=== PATIENT | male | born 1985 | race Caucasian/White ===

== ENCOUNTER 2016-08-12 20:08 | Emergency (ER) | payer OTHER ==
[~2016-08-12] VITALS: Ht 188 cm; Wt 108.5 kg
[~2016-08-12 20:08] MED LIST: AC325T PO; ACID1TAB4 PO; ATN50T PO; BACL10TA PO; BUSP15TA55 PO; CIPR500T4 PO; CPR500T PO; FLUO40CA PO; FLX20C PO; GBPN600T PO; IBP200T PO; METR500T17 PO; MIRT45TA5 PO; NAPR125O4 PO; OMEP20CA12 PO; ONDAN4ODT PO; ONDN4T PO; OXYC10TA7 PO; OXYC1TAB12 PO; OXYC1TAB87 PO; TRM50T PO; VANCORAL PO
[2016-08-12] MEDS ORDERED: ASPIRIN 81 MG CHEW (CHILDREN'S ASA) PO ONE (20:30)
[2016-08-12] MEDS: NITROGLYCERIN SUBLINGUAL 0.4 MG (NITROQUICK) TABLET SL PRN ×2 (20:39→20:52)
--- NOTE | 2016-08-12 20:43 | Diagnostic Imaging Report ---
INDICATION: Chest pain. Comparison with 01/14/2016. Lungs are well-aerated and clear. The heart is not enlarged. The pulmonary vasculature is normal. No pneumothorax or pleural effusions. IMPRESSION: Normal portable chest. Dictated by: Dictated on workstation # [id number]
[2016-08-12] MEDS ORDERED: OMEP20TA33 PO (20:44)
[2016-08-12] MEDS ORDERED: ONDANSETRON 2 MG/ML (Z0FRAN) 2 ML VIAL IV ONE (20:50)
[2016-08-12 20:58] LABS: BASOPHILS % (AUTO) 0 % (0-2); EOSINOPHILS # (AUTO) 0.3 10^3uL; EOSINOPHILS % (AUTO) 2 % (0-4); LYMPHOCYTES # (AUTO) 3.6 X10^3; MEAN CORPUSCULAR HEMOGLOBIN 30.8 PG (26.0-34.0); MEAN CORPUSCULAR VOLUME 85 FL (80-100); MEAN PLATELET VOLUME 10.3 FL (6.0-9.5); MONOCYTES % (AUTO) 8 % (3-11); NEUTROPHILS # (AUTO) 7.4 X10^3; NEUTROPHILS % (AUTO) 60 % (51-67); PLATELET COUNT 320 10^3uL (150-450); WHITE BLOOD COUNT 12.28 10^3uL (4.0-11.0)
[2016-08-12 20:59] LABS: MEAN CORPUSCULAR HGB CONC 36.3 g/dL (31.0-37.0)
[2016-08-12 21:09] LABS: ALBUMIN 4.4 g/dL (3.4-5.0); ALKALINE PHOSPHATASE 105 U/L (38-126); ANION GAP 14.5 MEQ/L (3-15); BUN/CREATININE RATIO 7 (10-20); CALCULATED IONIZED CALCIUM 4.1 mg/dL (3.8-4.6); CREATINE KINASE 63 U/L (55-170); TOTAL PROTEIN 7.7 g/dL (6.4-8.5)
[2016-08-12] MEDS ORDERED: SODIUM CHLORIDE FLUSH 3 ML SYR IV PRN (21:10)
[2016-08-12] MEDS ORDERED: SODIUM CHLORIDE FLUSH 10 ML SYR IV PRN (21:10)
[2016-08-12] MEDS ORDERED: KETOROLAC 30 MG/ML (TORADOL) 1 ML VIAL IV ONE (21:20)
[2016-08-12] MEDS ORDERED: PROMETHAZINE HCL INJ 12.5 MG in SODIUM CHLORIDE 25 ML IV ONE (21:20)
[2016-08-12] MEDS ORDERED: LORazepam 2 MG/ML (ATIVAN) 1 ML VIAL IV ONE (21:50)
[2016-08-12] MEDS ORDERED: ED- HYDROcodone/ACETAMINOPHEN 5MG/325MG (NORCO) 6 TABLETS/BTL PO ONE (22:15)
[2016-08-12 23:04] VITALS: BP 101/70
[2016-10-09] MEDS ORDERED: PRED50TA PO (20:21)
== END 2016-08-12 22:35 | disposition home or self-care (01) ==
LOC: ED 20:10
DX: M94.0 Chondrocostal junction syndrome [Tietze] (principal); F41.1 Generalized anxiety disorder; F17.210 Nicotine dependence, cigarettes, uncomplicated
CPT/HCPCS: 36415; 71010; 80053; 82550; 82553; 83880; 84443; 84484; 85025; 85379; 85610; 86140; 93005; 96365; 96375; 99284; J1885; J2060; J2405; J2550; 93010; 99285

== ENCOUNTER 2016-10-09 19:49 | Emergency (ER) | payer OTHER ==
[~2016-10-09] VITALS: Ht 188 cm; Wt 111.3 kg
[2016-10-09 20:10] VITALS: BP 115/91
[2016-10-09] MEDS ORDERED: SODIUM CHLORIDE FLUSH 3 ML SYR IV PRN (20:40)
[2016-10-09] MEDS ORDERED: SODIUM CHLORIDE FLUSH 10 ML SYR IV PRN (20:40)
[2016-10-09] MEDS ORDERED: HYDROmorphone 1 MG/ML (DILAUDID) SYRINGE IV ONE ×2 (20:40→21:40)
[2016-10-09] MEDS ORDERED: ONDANSETRON 2 MG/ML (Z0FRAN) 2 ML VIAL IV ONE (20:40)
[2016-10-09 21:07] LABS: BASOPHILS % (AUTO) 0 % (0-2); EOSINOPHILS % (AUTO) 0 % (0-4); LYMPHOCYTES # (AUTO) 2.8 X10^3; MEAN CORPUSCULAR HEMOGLOBIN 30.3 PG (26.0-34.0); MEAN CORPUSCULAR VOLUME 85 FL (80-100); MEAN PLATELET VOLUME 10.2 FL (6.0-9.5); MONOCYTES # (AUTO) 0.8 X10^3; MONOCYTES % (AUTO) 6 % (3-11); NEUTROPHILS # (AUTO) 9.7 X10^3; NEUTROPHILS % (AUTO) 73 % (51-67); PLATELET COUNT 375 10^3uL (150-450); WHITE BLOOD COUNT 13.33 10^3uL (4.0-11.0)
[2016-10-09 21:09] LABS: MEAN CORPUSCULAR HGB CONC 35.6 g/dL (31.0-37.0)
[2016-10-09 21:10] LABS: BILIRUBIN,URINE Negative (Negative); CLARITY,URINE Clear; COLOR,URINE Yellow; GLUCOSE, URINE (UA) Negative (Negative); LEUKOCYTE ESTERASE ,URINE Negative (Negative); UROBILINOGEN,URINE 0.2 mg/dL (0.2-1.0)
[2016-10-09 21:16] LABS: ANION GAP 16.9 MEQ/L (3-15); CALCULATED IONIZED CALCIUM 3.9 mg/dL (3.8-4.6); TOTAL PROTEIN 8.7 g/dL (6.4-8.5)
--- NOTE | 2016-10-09 21:21 | NUR ---
pt requests more pain medication. Addendum: 10/09/16 at 2121 by [id number] notified
[2016-10-09] MEDS ORDERED: HYDROmorphone 2 MG/ML (DILAUDID) 1 ML SYRINGE IV ONE (22:30)
[2016-10-09] MEDS ORDERED: LORazepam 2 MG/ML (ATIVAN) 1 ML VIAL IV ONE (22:30)
[2016-10-09] MEDS ORDERED: ED- LORAZEPAM 0.5 MG (ATIVAN) 6 TABLETS/BTL PO ONE (23:00)
[2016-10-09] MEDS ORDERED: [UNRECOGNIZED DRUG - OTHER] PO ONE (23:20)
== END 2016-10-09 23:05 | disposition home or self-care (01) ==
LOC: ED 19:52
DX: R10.31 Right lower quadrant pain (principal); R10.11 Right upper quadrant pain
CPT/HCPCS: 36415; 74022; 76705; 80053; 81003; 83690; 85025; 86140; 96361; 96374; 96375; 96376; 99283; J1170; J2060; J2405; J7030

== ENCOUNTER 2016-10-27 16:30 | Emergency (ER) | payer OTHER ==
[~2016-10-27] VITALS: Ht 185.4 cm; Wt 110.4 kg
[~2016-10-27 16:30] MED LIST changes: +OMEP20TA33 PO; +PRED50TA PO
[2016-10-27] MEDS ORDERED: ESZO2TAB38 PO (16:57)
[2016-10-27] MEDS ORDERED: METOCLOPRAMIDE 10 MG/2 ML (REGLAN) VIAL IV ONE ×2 (17:00→17:45)
[2016-10-27] MEDS ORDERED: LORazepam 2 MG/ML (ATIVAN) 1 ML VIAL IV ONE (17:00)
[2016-10-27] MEDS ORDERED: SODIUM CHLORIDE FLUSH 10 ML SYR IV PRN (17:00)
[2016-10-27] MEDS ORDERED: SODIUM CHLORIDE FLUSH 3 ML SYR IV PRN (17:00)
--- NOTE | 2016-10-27 18:12 | NUR ---
pt in room snoring when 2nd dose of reglan given, girlfriend with pt
[2016-10-27] MEDS ORDERED: HYDROmorphone 2 MG/ML (DILAUDID) 1 ML SYRINGE IV ONE (18:40)
[2016-10-27 19:03] VITALS: BP 140/84
== END 2016-10-27 19:04 | disposition home or self-care (01) ==
LOC: ED 16:31
DX: G43.809 Other migraine, not intractable, without status migrainosus (principal)
CPT/HCPCS: 96361; 96374; 96375; 96376; 99283; J1170; J2060; J2765; J7030; 99282

== ENCOUNTER 2016-12-04 17:38 | Emergency (ER) | payer OTHER ==
[~2016-12-04] VITALS: Ht 185.4 cm; Wt 103.0 kg
[~2016-12-04 17:38] MED LIST changes: +ESZO2TAB38 PO
[2016-12-04] MEDS ORDERED: SODIUM CHLORIDE FLUSH 3 ML SYR IV ONE (18:15)
[2016-12-04] MEDS ORDERED: KETOROLAC 30 MG/ML (TORADOL) 1 ML VIAL IV ONE (18:15)
[2016-12-04] MEDS ORDERED: LORazepam 2 MG/ML (ATIVAN) 1 ML VIAL IV ONE ×2 (18:15→20:00)
[2016-12-04] MEDS ORDERED: SODIUM CHLORIDE FLUSH 10 ML SYR IV PRN (18:15)
[2016-12-04] MEDS ORDERED: ONDANSETRON 2 MG/ML (Z0FRAN) 2 ML VIAL IV ONE (18:15)
[2016-12-04] MEDS ORDERED: HYDROmorphone 1 MG/ML (DILAUDID) SYRINGE IV ONE (18:15)
[2016-12-04 18:36] LABS: BILIRUBIN,URINE Negative (Negative); GLUCOSE, URINE (UA) Negative (Negative); LEUKOCYTE ESTERASE ,URINE Negative (Negative); UROBILINOGEN,URINE 0.2 mg/dL (0.2-1.0)
[2016-12-04 18:41] LABS: CLARITY,URINE Slightly Cloudy; COLOR,URINE Dark Yellow
[2016-12-04 18:45] LABS: BASOPHILS % (AUTO) 0 % (0-2); EOSINOPHILS # (AUTO) 0.1 10^3uL; EOSINOPHILS % (AUTO) 1 % (0-4); LYMPHOCYTES # (AUTO) 3.5 X10^3; MEAN CORPUSCULAR HEMOGLOBIN 30.3 PG (26.0-34.0); MEAN CORPUSCULAR HGB CONC 35.4 g/dL (31.0-37.0); MEAN CORPUSCULAR VOLUME 86 FL (80-100); MEAN PLATELET VOLUME 10.6 FL (6.0-9.5); MONOCYTES # (AUTO) 0.8 X10^3; MONOCYTES % (AUTO) 7 % (3-11); NEUTROPHILS # (AUTO) 7.8 X10^3; NEUTROPHILS % (AUTO) 64 % (51-67); PLATELET COUNT 288 10^3uL (150-450); WHITE BLOOD COUNT 12.33 10^3uL (4.0-11.0)
[2016-12-04 18:50] LABS: AMPHETAMINE SCREEN, URINE Negative (Negative); CANNABINOID SCREEN, URINE Negative (Negative); METHAMPHETAMINE SCREEN URINE S NEGATIVE (NEGATIVE); OPIATE SCREEN URINE Positive (Negative); PROPOXYPHENE STAT NEGATIVE (NEGATIVE)
[2016-12-04 18:58] LABS: ALBUMIN 4.7 g/dL (3.4-5.0); ALKALINE PHOSPHATASE 116 U/L (38-126); ANION GAP 17.8 MEQ/L (3-15); BUN/CREATININE RATIO 11 (10-20); CALCULATED IONIZED CALCIUM 4.1 mg/dL (3.8-4.6); LIPASE* 115 U/L (23-300); TOTAL PROTEIN 8.1 g/dL (6.4-8.5)
[2016-12-04] MEDS ORDERED: HYDROmorphone 2 MG/ML (DILAUDID) 1 ML SYRINGE IV ONE (19:20)
[2016-12-04] MEDS ORDERED: PROMETHAZINE HCL INJ 25 MG in SODIUM CHLORIDE 25 ML IV ONE (19:20)
--- NOTE | 2016-12-04 19:21 | Diagnostic Imaging Report ---
INDICATION: Right upper quadrant pain. Four views were obtained. FINDINGS: The heart size is normal. The lungs are clear. The bowel gas pattern is nonspecific. There is no free air. There are surgical clips in the right upper quadrant. IMPRESSION: No acute cardiopulmonary abnormality. Nonspecific bowel gas pattern. Dictated by: Dictated on workstation # [id number]
[2016-12-04] MEDS ORDERED: ED- ONDANSETRON ODT 4 MG (ZOFRAN) 4 TABLETS/BTL PO ONE (20:35)
[2016-12-04] MEDS ORDERED: ED- oxyCODONE/ACETAMINOPHEN 5MG-325MG (PERCOCET) 8 TABLETS/BTL PO ONE (20:35)
[2016-12-04 20:48] VITALS: BP 142/75
== END 2016-12-04 20:45 | disposition home or self-care (01) ==
LOC: ED 17:39
DX: R10.11 Right upper quadrant pain (principal); R19.7 Diarrhea, unspecified
CPT/HCPCS: 36415; 74022; 80053; 80307; 81003; 83690; 85025; 86140; 96361; 96365; 96375; 96376; 99283; A9270; G0480; J1170; J1885; J2060; J2405; J2550; J7030; 80320; 99282